=== PATIENT | male | born 1960 | race Caucasian/White ===

== ENCOUNTER 2025-03-09 07:41 | Day surgery (SDC) | payer BC ==
[2025-03-09] MEDS ORDERED: methylPREDNISolone acetate IM ONE (07:42)
[2025-03-09] MEDS ORDERED: BUPIVACAINE 0.5% VIAL IJ ONE (07:42)
[2025-03-09] MEDS ORDERED: propofoL IV ONE (09:47)
[2025-03-09] MEDS ORDERED: Lactated Ringers 1,000 ML IV ONE (10:35)
--- NOTE | 2025-03-09 11:57 | XRAY ---
Indication: Bilateral hip and greater trochanter bursa injection. Intraoperative fluoroscopy provided for 31 seconds. 4 digital spot image submitted for interpretation demonstrates needle tip projecting lateral to left/right femur necks and left/right greater trochanters. Small amount of contrast injected for all needle tip placement. Correlate with intraoperative findings/report.
--- NOTE | 2025-03-09 12:55 | XRAY ---
31 seconds of fluoroscopy was used in surgery for a bilateral intra-articular hip and greater trochanteric bursa injection.
== END 2025-03-09 10:24 | disposition home or self-care (01) ==
LOC: SDC-PAIN 07:41
PROVIDERS: ATTEND Psychiatry & Neurology Pain Medicine
DX: M16.0 Bilateral primary osteoarthritis of hip (principal); M70.62 Trochanteric bursitis, left hip; M70.61 Trochanteric bursitis, right hip; R73.03 Prediabetes